=== PATIENT | female | born 2000 | race Two or more races ===

== ENCOUNTER 2024-05-16 10:58 | Outpatient (CLI) | payer OTHER | END 2024-05-16 11:07 | disposition home or self-care (01) | LOC: PRENATAL 10:58 | PROVIDERS: ATTEND Obstetrics & Gynecology Maternal & Fetal Medicine | DX: O36.80X0 Pregnancy with inconclusive fetal viability, not applicable or unspecified (principal); Z36.82 Encounter for antenatal screening for nuchal translucency; Z14.8 Genetic carrier of other disease; Z3A.14 14 weeks gestation of pregnancy ==

== ENCOUNTER → 2024-07-02 13:57 | Outpatient (CLI) | payer OTHER | END | disposition home or self-care (01) | LOC: PRENATAL 13:57 | PROVIDERS: ATTEND Obstetrics & Gynecology Maternal & Fetal Medicine | DX: O35.9XX0 Maternal care for (suspected) fetal abnormality and damage, unspecified, not applicable or unspecified (principal); O35.3XX0 Maternal care for (suspected) damage to fetus from viral disease in mother, not applicable or unspecified; O44.02 Complete placenta previa NOS or without hemorrhage, second trimester; Z3A.21 21 weeks gestation of pregnancy; Z14.8 Genetic carrier of other disease ==

== ENCOUNTER → 2024-09-23 13:24 | Outpatient (CLI) | payer OTHER | END | disposition home or self-care (01) | LOC: PRENATAL 13:24 | PROVIDERS: ATTEND Obstetrics & Gynecology Maternal & Fetal Medicine | DX: O26.849 Uterine size-date discrepancy, unspecified trimester (principal); O36.8199 Decreased fetal movements, unspecified trimester, other fetus; Z14.8 Genetic carrier of other disease; Z3A.32 32 weeks gestation of pregnancy ==

== ENCOUNTER 2024-10-29 12:03 | Inpatient (IN) | payer OTHER ==
[2024-10-29] VITALS (9 sets, daily range): BP systolic 116–132; BP diastolic 61–82
[~2024-10-29] VITALS: Ht 160 cm; Wt 73.9 kg
[2024-10-29] MEDS ORDERED: PRENATAL TABLE1 EAC4 PO (12:06)
[2024-10-29] MEDS ORDERED: RINGERS SOLUTION,LACTATED 1,000 ML IV SCH (12:15)
[2024-10-29 13:06] LABS: HEMOGLOBIN 12.5 g/dL (11.2-15.7); RED BLOOD COUNT 4.41 M/uL (3.93-5.22)
[2024-10-29 13:07] LABS: BASO % 0.5 % (0.1-1.2); EOS % 0.1 % (0.7-7.0); LYMPH % 13.3 % (19.3-53.1); MEAN CORPUSCULAR HEMOGLOBIN 28.3 pg (25.6-32.2); MONO % 5.6 % (4.7-12.5); NEUT # 10.07 (1.56-6.13); NEUT % 79.9 % (34.0-71.1); PLATELET COUNT 316 K/uL (163-369)
[2024-10-29 13:08] LABS: EOS # 0.01 (0.04-0.54); LYMPH # 1.68 (1.18-3.74); MONO # 0.71 (0.24-0.82)
[2024-10-29 13:09] LABS: PH,URINE 7.5 (5.0-8.0); URINE APPEARANCE Clear; URINE BILIRRUBIN Negative (NEGATIVE); URINE BLOOD Moderate; URINE COLOR Yellow; URINE GLUCOSE Negative (NEGATIVE); URINE LEUKOCYTE Negative; URINE NITRATE Negative; URINE PROTEIN Trace (NEGATIVE)
[2024-10-29 13:14] LABS: URINE BACTERIA 236.1 uL (0.0-1933); URINE EPITHELIAL CELLS 17.8 uL (0.0-38.8); URINE WBC 21.3 uL (0.0-23.2)
[2024-10-29 13:24] LABS: URINE CAST 0.14 uL (0.0-1.40); URINE KETONE 80 (NEGATIVE)
[2024-10-29 13:30] LABS: INR 1.03; PARTIAL THROMBOPLASTIN TIME 24.4 SECONDS (22.0-34.0); PROTHROMBIN TIME 11.2 SECONDS (9.0-11.5)
[2024-10-29] MEDS ORDERED: OXYTOCIN 20 UNITS/1000ML RL PIGGYBAG IV ONE (13:33)
[2024-10-29] MEDS ORDERED: CHLORHEXIDINE GLUCONATE 120 ML BOTTLE TOP ONE ×2 (13:33→14:45)
[2024-10-29] MEDS ORDERED: ERYTHROMYCIN BASE OPHT 1GM EACH TUBE OP ONE ×2 (13:33→14:45)
[2024-10-29] MEDS ORDERED: LIDOCAINE HCL 1% 10ML VIAL ONE (13:34)
[2024-10-29] MEDS ORDERED: MORPHINE SULFATE 4 MG/ML CARTRIDGE IV ONE (13:45)
[2024-10-29] MEDS ORDERED: OXYTOCIN 500 ML IV SCH (13:45)
[2024-10-29] MEDS ORDERED: OXYTOCIN 1,000 ML IV SCH (14:45)
[2024-10-29] MEDS ORDERED: IBUprofen 600 MG TABLET PO PRN (15:00)
[2024-10-29] MEDS ORDERED: IBUprofen 600 MG TABLET PO SCH (20:00)
[2024-10-30 00:34] VITALS: BP 100/60
[2024-10-30 06:48] LABS: BASO % 0.4 % (0.1-1.2); EOS # 0.06 (0.04-0.54); EOS % 0.5 % (0.7-7.0); HEMATOCRIT 32.6 % (34.1-44.9); LYMPH # 2.65 (1.18-3.74); LYMPH % 19.9 % (19.3-53.1); MEAN CORPUSCULAR HEMOGLOBIN 27.6 pg (25.6-32.2); MONO % 10.5 % (4.7-12.5); NEUT # 9.08 (1.56-6.13); PLATELET COUNT 260 K/uL (163-369); RED BLOOD COUNT 3.98 M/uL (3.93-5.22); RED CELL DISTRIBUTION WIDTH 13.1 % (11.6-14.4)
[2024-10-30] MEDS ORDERED: PNV,CALCIUM 72/IRON/FOLIC ACID 1 TAB TABLET PO SCH (09:00)
[2024-10-30 09:13] VITALS: BP 107/68; O2SAT 97
[2024-10-30 16:02] VITALS: BP 116/77
[2024-10-31] VITALS: BP 113/75
[2024-10-31 09:01] VITALS: BP 110/74; O2SAT 97
== END 2024-10-31 13:51 | disposition home or self-care (01) | DRG 807 ==
LOC: OB/GYN 12:03 → LDR 12:03 → OB/GYN 14:19
PROVIDERS: ADMIT Obstetrics & Gynecology; ATTEND Obstetrics & Gynecology
PROC: 10E0XZZ Delivery of Products of Conception, External Approach (ICD-10-PCS; principal; 2024-10-29)
PROC: 4A1HXCZ Monitoring of Products of Conception, Cardiac Rate, External Approach (ICD-10-PCS; 2024-10-29)
DX: O80 Encounter for full-term uncomplicated delivery (principal); Z37.0 Single live birth; Z3A.37 37 weeks gestation of pregnancy